=== PATIENT | female | born 1935 | race Caucasian/White ===

== ENCOUNTER → 2019-03-05 | Outpatient (CLI) | payer MEDICARE, OTHER ==
[~2019-03-05] MED LIST: ADULT LOW DOSE81 MG PO; ALTOPREV40 MG PO; ATENOLOL 25 MG25 M1 PG; BENADRYL25 MG PO; CALCIUM; HYDROXYZINE HCL25 M1 PO; NEPHROCAPS SOFT1 CAP PO; NEXIUM40 MG PO; OMEGA-3 FISH O1 EAC3 PO; PREDNISONE 20 M20 M1 PO; TRIAMTERENE-HC1 EAC1 PO; ZANTAC 150MG T150 M1
== END ==
LOC: M.RAD 03-04 13:30
DX: M81.0 Age-related osteoporosis without current pathological fracture (principal); M85.89 Other specified disorders of bone density and structure, multiple sites